=== PATIENT | female | born 1940 | race Caucasian/White ===

== ENCOUNTER 2018-01-17 18:47 | Emergency (ER) | payer MEDICARE, OTHER ==
[2018-01-17 18:53] VITALS: BP 138/74
--- NOTE | 2018-01-17 19:28 | EDM.PDOC ---
ED HPI GENERAL MEDICAL PROBLEM - General Chief Complaint: Laceration Stated Complaint: scraped face Time Seen by Provider: 01/17/18 19:20 Source of Information: Reports: Patient History Limitations: Reports: No Limitations - History of Present Illness INITIAL COMMENTS - FREE TEXT/NARRATIVE: Patient presents to ER with abrasions/lacerations to face s/p fall. She relates that she does fall often due to her MS. Satish, tripped over a foot spa technician and hit her face on the floor. Did not lose consciousness. Has not pain. She denies epistaxis. No pain elsewhere. Good range of motion per her norm to all extremities. 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(s) - Related Data Allergies Allergy/AdvReac Type Severity Reaction Status Date / Time Penicillins Allergy Rash Verified 01/17/18 18:53 Home Meds: Home Meds Amiodarone [Cordarone] 200 mg PO DAILY 01/17/18 [History] Aspirin [Halfprin] 81 mg PO DAILY 01/17/18 [History] Cholecalciferol (Vitamin D3) [Vitamin D3] 2,000 units PO DAILY 01/17/18 [History ] Furosemide 20 mg PO DAILY 01/17/18 [History] Lisinopril 5 mg PO DAILY 01/17/18 [History] Metoprolol Succinate 100 mg PO DAILY 01/17/18 [History] Pantoprazole [ProTONIX] 40 mg PO DAILY 01/17/18 [History] Potassium Chloride 5 meq PO DAILY 01/17/18 [History] Simvastatin 20 mg PO DAILY 01/17/18 [History] Warfarin [Coumadin] 2.5 mg PO DAILY 01/17/18 [History] amLODIPine [Norvasc] 2.5 mg PO DAILY 01/17/18 [History] Past Medical History HEENT History: Reports: Cataract Cardiovascular History: Reports: Afib, Automatic Implantable Cardioverter Defibrillators, Heart Valve Replacement, Hypertension, Pacemaker Gastrointestinal History: Reports: GERD Genitourinary History: Reports: Chronic Renal Insuffiency Musculoskeletal History: Reports: Arthritis, Other (See Below) Other Musculoskeletal History: chronic jeffry shoulder pain/stiffness Neurological History: Reports: MS, Other (See Below) Other Neuro History: history of falls - Past Surgical History HEENT Surgical History: Reports: Cataract Surgery Cardiovascular Surgical History: Reports: AICD, Valve Replacement Social & Family History - Family History Family Medical History: Noncontributory - Tobacco Use Smoking Status *Q: Never Smoker - Caffeine Use Caffeine Use: Reports: Coffee - Recreational Drug Use Recreational Drug Use: No ED ROS GENERAL - Review of Systems Review Of Systems: See Below Constitutional: Reports: Weakness (leg weakness due to MS) HEENT: Denies: Ear Discharge, Ear Pain, Nosebleed, Rhinitis, Vertigo Respiratory: Denies: No Symptoms Cardiovascular: Denies: No Symptoms Skin: Reports: Wound Neurological: Denies: Headache, Syncope Psychiatric: Reports: No Symptoms ED EXAM, SKIN/RASH Exam: See Below Exam Limited By: No Limitations General Appearance: Alert, WD/WN, No Apparent Distress Ears: Normal External Exam, Normal TMs Nose: Normal Inspection, Normal Mucosa, No Blood Throat/Mouth: Normal Inspection, Normal Oropharynx Head: Normocephalic, Facial Tenderness (abrasion/bruising to left cheek. Linear superficial lacerations to left cheek. small bruise on right cheek) ED SKIN PROCEDURES - Laceration/Wound Repair Left Cheek Lac/Wound length In cm: 2 Appearance: Superficial, Linear, Irregular Skin Prep: Other (ade-clens) Closed with: Dermabond, Steri-Strips Tetanus Status Addressed: Yes Complications: Yes Course - Vital Signs Last Recorded V/S: Last Vital Signs Temp 96.5 F 01/17/18 18:47 Pulse 77 01/17/18 18:47 Resp 18 01/17/18 18:47 BP 138/74 01/17/18 18:47 Pulse Ox 100 01/17/18 18:47 Departure - Departure Time of Disposition: 19:27 Disposition: Home, Self-Care 01 Condition: Good Clinical Impression: Broken skin - Discharge Information *PRESCRIPTION DRUG MONITORING PROGRAM REVIEWED*: No *COPY OF PRESCRIPTION DRUG MONITORING REPORT IN PATIENT RASHAD: No Referrals: PCP,None [Primary Care Provider] - Forms: ED Department Discharge Additional Instructions: 1. Keep wound clean and dry 2. Cover as needed 3. Allow steri strips to fall off 4. Notify us of any concerns.
== END 2018-01-17 19:36 | disposition home or self-care (01) ==
LOC: CC.ED 18:47
DX: S01.412A Laceration without foreign body of left cheek and temporomandibular area, initial encounter (principal); Z88.0 Allergy status to penicillin; Z79.82 Long term (current) use of aspirin; Z79.899 Other long term (current) drug therapy; Z79.01 Long term (current) use of anticoagulants
CPT/HCPCS: 12011; 99283

== ENCOUNTER 2019-06-26 15:15 | Emergency (ER) | payer MEDICARE, OTHER ==
--- NOTE | 2019-06-26 15:29 | EDM.PDOC ---
ED HPI GENERAL MEDICAL PROBLEM - General Stated Complaint: FELL Time Seen by Provider: 06/26/19 15:15 Source of Information: Reports: Patient, EMS, Family () History Limitations: Reports: No Limitations - History of Present Illness INITIAL COMMENTS - FREE TEXT/NARRATIVE: This patient is an 79 year old female that presents to the ER via EMS. is in room as historian as well. Patient is alert and oriented. Patient reports that she was walking to the bathroom and felt generally weak and dizzy, then does not remember after that. reports that he was in other room and heard her fall. He reports walking into room and finding her on the floor unconscious, but was breathing. He called 911. reports that the patient was not responding for about 5 minutes. Patient arrives to the ER via EMS. Patient is alert and oriented. Patient has hx of MS. She denies unilateral weaknesses. Patient reports global headache and nausea. Trauma code was called. Fall on Coumadin. Patient taken to CT for head and cervical, portable CXR. Patient undressed for exam, 2 IVs started, media monitor, C-Collar applied. Onset: Today Onset Date: 06/26/19 Onset Time: 14:30 Front/Back Body Image: 1 - laceration 2 - hematoma Severity: Moderate Improves with: Reports: None Worsens with: Reports: None Associated Symptoms: Reports: No Other Symptoms, Headaches, Syncope, Weakness ( generally). Denies: Confusion, Chest Pain, Cough, cough w sputum, Diaphoresis, Fever/Chills, Loss of Appetite, Malaise, Nausea/Vomiting, Rash, Seizure, Shortness of Breath - Related Data Allergies Allergy/AdvReac Type Severity Reaction Status Date / Time Penicillins Allergy Rash Verified 01/17/18 18:53 Home Meds: Home Meds Amiodarone [Cordarone] 200 mg PO DAILY 01/17/18 [History] Aspirin [Halfprin] 81 mg PO DAILY 01/17/18 [History] Cholecalciferol (Vitamin D3) [Vitamin D3] 2,000 units PO DAILY 01/17/18 [History ] Furosemide 20 mg PO DAILY 01/17/18 [History] Lisinopril 5 mg PO DAILY 01/17/18 [History] Metoprolol Succinate 100 mg PO DAILY 01/17/18 [History] Pantoprazole [ProTONIX] 40 mg PO DAILY 01/17/18 [History] Potassium Chloride 5 meq PO DAILY 01/17/18 [History] Simvastatin 20 mg PO DAILY 01/17/18 [History] Warfarin [Coumadin] 2.5 mg PO DAILY 01/17/18 [History] amLODIPine [Norvasc] 2.5 mg PO DAILY 01/17/18 [History] Past Medical History HEENT History: Reports: Cataract Cardiovascular History: Reports: Afib, Automatic Implantable Cardioverter Defibrillators, Heart Valve Replacement, Hypertension, Pacemaker Gastrointestinal History: Reports: GERD Genitourinary History: Reports: Chronic Renal Insuffiency Musculoskeletal History: Reports: Arthritis, Other (See Below) Other Musculoskeletal History: chronic jeffry shoulder pain/stiffness Neurological History: Reports: MS, Other (See Below) Other Neuro History: history of falls - Past Surgical History HEENT Surgical History: Reports: Cataract Surgery Cardiovascular Surgical History: Reports: AICD, Valve Replacement Social & Family History - Family History Family Medical History: Noncontributory - Caffeine Use Caffeine Use: Reports: Coffee ED ROS GENERAL - Review of Systems Review Of Systems: See Below Constitutional: Reports: Weakness (generalized) HEENT: Reports: No Symptoms Respiratory: Reports: No Symptoms. Denies: Shortness of Breath Cardiovascular: Reports: Syncope. Denies: Chest Pain, Dyspnea on Exertion, Edema, Palpitations Endocrine: Reports: No Symptoms GI/Abdominal: Reports: Nausea. Denies: Abdominal Pain, Diarrhea, Vomiting : Reports: No Symptoms Musculoskeletal: Reports: No Symptoms. Denies: Neck Pain, Shoulder Pain, Arm Pain, Back Pain, Hand Pain, Leg Pain, Foot Pain, Joint Pain, Muscle Pain, Muscle Stiffness Skin: Reports: Wound Neurological: Reports: Headache, Syncope. Denies: Trouble Speaking, Change in Speech Psychiatric: Reports: No Symptoms Hematologic/Lymphatic: Reports: No Symptoms Immunologic: Reports: No Symptoms - Physical Exam Exam: See Below Exam Limited By: No Limitations General Appearance: Alert, WD/WN Eye Exam: Bilateral Eye: EOMI, Normal Inspection, PERRL Ears: Normal External Exam, Normal Canal, Hearing Grossly Normal, Normal TMs Nose: Normal Inspection, Normal Mucosa, No Blood Throat/Mouth: Normal Inspection, Normal Lips, Normal Gums, Normal Oropharynx, Normal Voice, No Airway Compromise Head Exam: Scalp Ecchymosis (left frontal), Scalp Hematoma (left frontal), Other (right pariatal laceration 2cm) Neck: Normal Inspection, Supple, Non-Tender, Full Range of Motion, Other (C- COLLAR Placed) Respiratory/Chest: No Respiratory Distress, Lungs Clear, Normal Breath Sounds, No Accessory Muscle Use, Chest Non-Tender Cardiovascular: Normal Peripheral Pulses, Regular Rate, Rhythm, Systolic Murmur GI/Abdominal: Soft, Non-Tender Neuro Exam (Abbreviated): Alert, Oriented, CN II-XII Intact, Normal Cognition, Other (Stroke Score 0: GCS: 15) Back Exam: Normal Inspection, Full Range of Motion Extremities: Normal Inspection, Normal Range of Motion, Non-Tender, Normal Capillary Refill Psychiatric: Normal Affect, Normal Mood Skin Exam: Warm, Dry, Ecchymosis (Left frontal scalp with hematoma), Wound/ Incision (Right pariatal 2cm Laceration: NOT SUTURED, EMERGENT FLIGHT.) Course - Orders/Labs/Meds Orders: Active Orders 24 hr Category Date Time Status Cervical Spine wo Cont [CT] Stat Exams 06/26/19 15:16 Taken Chest 1V Frontal [CR] Stat Exams 06/26/19 15:16 Taken Head wo Cont [CT] Stat Exams 06/26/19 15:16 Taken ABO/RH TYPE [BBK] Stat Lab 06/26/19 15:59 Results CULTURE BLOOD [BC] Stat Lab 06/26/19 15:40 Received CULTURE BLOOD [BC] Stat Lab 06/26/19 15:45 Received FRESH FROZEN PLASMA [BBK] Stat Lab 06/26/19 15:59 Results UA W/MICROSCOPIC [URIN] Stat Lab 06/26/19 15:16 Ordered Blood Culture x2 Reflex Set [OM.PC] Stat Oth 06/26/19 15:17 Ordered Transfuse Fresh Frozen Plasma [COMM] Stat Oth 06/26/19 15:52 Ordered Labs: Laboratory Tests 06/26/19 06/26/19 06/26/19 Range/Units 15:40 15:40 15:40 WBC 7.7 (5.0-10.0) 10^3/uL RBC 4.60 (4.00-5.50) 10^6/uL Hgb 13.7 (12.0-16.0) g/dL Hct 41.0 (37.0-47.0) % MCV 89.1 (82.0-94.0) fL MCH 29.8 (27.0-32.0) pg MCHC 33.4 (33.0-38.0) g/dL RDW Coeff of Allie 14.1 (11.0-15.0) % Plt Count 202 (150-400) 10^3/uL Neut % (Auto) 70.0 (35-85) % Lymph % (Auto) 19.5 (10-55) % [place] % (Auto) 8.5 (0-16) % Eos % (Auto) 1.6 (0-5) % Baso % (Auto) 0.4 (0-3) % Neut # (Auto) 5.39 (1.80-7.00) 10^3/uL Lymph # (Auto) 1.50 (1.00-4.80) 10^3/uL [place] # (Auto) 0.65 (0.00-0.80) 10^3/uL Eos # (Auto) 0.12 (0.00-0.45) 10^3/uL Baso # (Auto) 0.03 10^3/uL PT 18.8 H (9.7-12.3) SEC INR 1.87 H (0.92-1.18) Sodium 138 (136-145) mEq/L Potassium 3.9 (3.5-5.0) mEq/L Chloride 103 (98-106) mEq/L Carbon Dioxide 27 (21-32) mmol/L BUN 41 H (7-18) mg/dL Creatinine 2.1 H (0.6-1.0) mg/dL Est Cr Clr Drug Dosing TNP Estimated GFR (MDRD) 23 L (>=60) mL/min Glucose 121 H (75-99) mg/dL Lactic Acid (0.4-2.0) mmol/L Calcium 8.7 (8.4-10.1) mg/dL Total Bilirubin 0.7 (0.0-1.0) mg/dL AST 32 (15-37) U/L ALT 27 (12-78) U/L Alkaline Phosphatase 79 (46-116) U/L Lactate Dehydrogenase 196 H (100-190) U/L Troponin I < 0.017 (0.00-0.06) ng/mL NT-Pro-B Natriuret Pep 973 (0-1000) pg/mL Total Protein 7.0 (6.4-8.2) g/dL Albumin 3.4 (3.4-5.0) g/dL Blood Type 06/26/19 06/26/19 Range/Units 15:40 15:59 WBC (5.0-10.0) 10^3/uL RBC (4.00-5.50) 10^6/uL Hgb (12.0-16.0) g/dL Hct (37.0-47.0) % MCV (82.0-94.0) fL MCH (27.0-32.0) pg MCHC (33.0-38.0) g/dL RDW Coeff of Allie (11.0-15.0) % Plt Count (150-400) 10^3/uL Neut % (Auto) (35-85) % Lymph % (Auto) (10-55) % [place] % (Auto) (0-16) % Eos % (Auto) (0-5) % Baso % (Auto) (0-3) % Neut # (Auto) (1.80-7.00) 10^3/uL Lymph # (Auto) (1.00-4.80) 10^3/uL [place] # (Auto) (0.00-0.80) 10^3/uL Eos # (Auto) (0.00-0.45) 10^3/uL Baso # (Auto) 10^3/uL PT (9.7-12.3) SEC INR (0.92-1.18) Sodium (136-145) mEq/L Potassium (3.5-5.0) mEq/L Chloride (98-106) mEq/L Carbon Dioxide (21-32) mmol/L BUN (7-18) mg/dL Creatinine (0.6-1.0) mg/dL Est Cr Clr Drug Dosing Estimated GFR (MDRD) (>=60) mL/min Glucose (75-99) mg/dL Lactic Acid 1.0 (0.4-2.0) mmol/L Calcium (8.4-10.1) mg/dL Total Bilirubin (0.0-1.0) mg/dL AST (15-37) U/L ALT (12-78) U/L Alkaline Phosphatase (46-116) U/L Lactate Dehydrogenase (100-190) U/L Troponin I (0.00-0.06) ng/mL NT-Pro-B Natriuret Pep (0-1000) pg/mL Total Protein (6.4-8.2) g/dL Albumin (3.4-5.0) g/dL Blood Type A POSITIVE Meds: Medications Discontinued Medications Generic Name Dose Route Start Last Admin Trade Name Anil PRN Reason Stop Dose Admin Sodium Chloride Confirm 06/26/19 16:01 Normal Saline Administered 06/26/19 16:02 Dose 250 mls @ as directed .ROUTE .STK-MED ONE Sodium Chloride Confirm 06/26/19 16:08 Normal Saline Administered 06/26/19 16:09 Dose 250 mls @ as directed .ROUTE .STK-MED ONE Ondansetron HCl 4 mg 06/26/19 15:30 06/26/19 15:33 Zofran IVPUSH 06/26/19 15:31 4 mg NOW STA Administration - Radiology Interpretation Free Text/Narrative:: Head ct without: Bleed without shift. no skull fracture CT Results Date: 06/26/19 CT Results Time: 16:09 - Re-Assessments/Exams Free Text/Narrative Re-Assessment/Exam: 06/26/[address]: I believe patient has a head bleed. I called [facility] to page flight. 06/26/19 15:40 I called and spoke to Dr. Shaquille BRADLEY at [facility] for accepting. She has accepted the patient. She would like to give KCENTRA, However, we do not have that here. So, I ordered 2 FFP. Still waiting on INR. She had neurosurgery paged. 06/26/19 16:[address] Mir called. Spoke to him and gave him report. He reports if INR is 5 or above to give the KCENTRA and 4 FFP. If less, give 2 FFP. Give FFP hung prior to leaving here. INR still not available. 06/26/19 16:07 INR available, give 2 FFP. Flight near here. Patient remains alert and oriented. Her 02 on RA is now 88%, patient head of bed elevated to 45 degrees, patient repositioned, 2L NC placed, patient now 94%. 06/26/19 16:25 Flight arrived. Patient alert and oriented. 2 FFP going now. Transferred. TDAP UTD. No time to staple head. Departure - Departure Time of Disposition: 16:25 Disposition: DC/Tfer to Acute Hospital 02 Condition: Critical Clinical Impression: Subarachnoid bleed - Discharge Information *PRESCRIPTION DRUG MONITORING PROGRAM REVIEWED*: Not Applicable *COPY OF PRESCRIPTION DRUG MONITORING REPORT IN PATIENT RASHAD: Not Applicable Referrals: PCP,Unknown [Primary Care Provider] - Sepsis Event Note - Focused Exam Date Exam was Performed: 06/26/19 Time Exam was Performed: 16:41 - My Orders Last 24 Hours: My Active Orders 06/26/19 15:16 Cervical Spine wo Cont [CT] Stat Chest 1V Frontal [CR] Stat Head wo Cont [CT] Stat UA W/MICROSCOPIC [URIN] Stat 06/26/19 15:17 Blood Culture x2 Reflex Set [OM.PC] Stat 06/26/19 15:40 CULTURE BLOOD [BC] Stat 06/26/19 15:45 CULTURE BLOOD [BC] Stat 06/26/19 15:52 Transfuse Fresh Frozen Plasma [COMM] Stat 06/26/19 15:59 ABO/RH TYPE [BBK] Stat FRESH FROZEN PLASMA [BBK] Stat - Assessment/Plan Last 24 Hours: My Active Orders 06/26/19 15:16 Cervical Spine wo Cont [CT] Stat Chest 1V Frontal [CR] Stat Head wo Cont [CT] Stat UA W/MICROSCOPIC [URIN] Stat 06/26/19 15:17 Blood Culture x2 Reflex Set [OM.PC] Stat 06/26/19 15:40 CULTURE BLOOD [BC] Stat 06/26/19 15:45 CULTURE BLOOD [BC] Stat 06/26/19 15:52 Transfuse Fresh Frozen Plasma [COMM] Stat 06/26/19 15:59 ABO/RH TYPE [BBK] Stat FRESH FROZEN PLASMA [BBK] Stat Plan: PLEASE SEE RN NOTE FOR PFSH. Patient is being transferred to [facility] via flight. Risk vs benefits explained to and patient. Risk is helicopter crash, , worsening of bleed, worsening of condition. The risk of staying in [place] is worsening of condition, , no neurosurgeon. The benefits of transfer is trauma center , neurosurgeon, ICU. The benefits of staying in [place] is close to home.
[2019-06-26] MEDS ORDERED: Ondansetron 4 MG/2 ML SDV IVPUSH STA (15:30)
[2019-06-26 16:13] LABS: CHLORIDE,CL 103 mEq/L (98-106); SODIUM,NA 138 mEq/L (136-145)
[2019-06-26] MEDS ORDERED: Sodium Chloride 0.9% 250 ML IV SCH ×2 (16:20→16:30)
[2019-06-26] MEDS: Sodium Chloride 0.9% 250 ML ONE ×4 (16:20→16:58)
[2019-06-26 18:01] VITALS: BP 146/85; PULSE 68
== END 2019-06-26 16:48 ==
LOC: CC.ED 15:15
DX: S06.6X1A Traumatic subarachnoid hemorrhage with loss of consciousness of 30 minutes or less, initial encounter (principal); I48.91 Unspecified atrial fibrillation; K21.9 Gastro-esophageal reflux disease without esophagitis; I12.9 Hypertensive chronic kidney disease with stage 1 through stage 4 chronic kidney disease, or unspecified chronic kidney disease; N18.9 Chronic kidney disease, unspecified; Z79.01 Long term (current) use of anticoagulants; Z79.899 Other long term (current) drug therapy; G35 Multiple sclerosis; Z88.0 Allergy status to penicillin; Z79.82 Long term (current) use of aspirin; W18.30XA Fall on same level, unspecified, initial encounter
CPT/HCPCS: 36415; 36430; 70450; 71045; 72125; 80053; 83605; 83615; 83880; 84484; 85025; 85610; 86900; 86901; 87040; 93005; 93010; 96374; 99284; 99285-25; J2405; J7050; P9017